=== PATIENT | female | born 1970 | race Caucasian/White ===

== ENCOUNTER → 2018-12-08 | Outpatient (CLI) | payer OTHER ==
--- NOTE | 2018-12-08 17:24 | REP ---
Chest x-ray: Two views: History: Shortness of breath. Nicotine dependence. Findings: The lungs are symmetrically aerated and clear. The pleural angles are sharp. Heart is not enlarged. Pulmonary vasculature is not increased. No significant bony abnormality is seen. Impression: Negative chest x-ray. Electronically Signed by Leopoldo Guzmán MD 12/08/2018 05:25 P
== END ==
LOC: M RAD 11:56
PROVIDERS: ATTEND Physician Assistant
DX: R06.02 Shortness of breath (principal)

== ENCOUNTER → 2018-12-17 | Outpatient (CLI) | payer OTHER ==
[2018-12-17 17:47] LABS: C REACTIVE PROTEIN QUANTITATIV 0.68 MG/DL (0.00-0.30)
[2018-12-20 00:06] LABS: CYCLIC CITRULLINATED PEPTIDE 17 units (0-19); SSA SJOGRENS A <0.2 AI (0.0-0.9); SSB SJOGRENS B <0.2 AI (0.0-0.9)
== END ==
LOC: M LAB 16:14
PROVIDERS: ATTEND Physician Assistant
DX: M13.0 Polyarthritis, unspecified (principal); M32.9 Systemic lupus erythematosus, unspecified

== ENCOUNTER → 2018-12-24 | Outpatient (CLI) | payer OTHER ==
[~2018-12-24] MED LIST: E-Z-GAS II EFFERVESCENT PACKET (SODIUM BICARB./CITRIC ACID/SIMETHICONE) As Ordered ONE; E-Z-HD 98% w/w 340GM SUSP BTL As Ordered ONE; E-Z-PAQUE 96% w/w SUSP 176GM BTL As Ordered ONE
--- NOTE | 2018-12-24 15:41 | REP ---
Examination Requested: Esophagram Barium Swallow Reason For Exam/Comment: Dysphagia Esophagram: The procedure was performed JOAQUIN Lucero, under the direct supervision of Dr. Lovell. The images were reviewed with Dr. Lovell. A single PA chest x-ray is submitted as a bonding supervisor film. The superior mediastinal structures are midline. The heart size is within normal limits. The lungs are clear. Liquid barium and gas producing granules were given in the erect position as well as liquid barium in the prone oblique position, in order to perform a double contrast esophagram examination. Oral and pharyngeal stages of the examination were unremarkable. Esophageal transport is efficient and there is no esophagitis, stricture, or mucosal ring noted. However, there is any anterior esophageal filling defect that appears to be a tiny mucosal web. There is no hiatal hernia noted. Gastroesophageal reflux was not visualized throughout the course of this exam. Impression: 1. There is tiny anterior esophageal mucosal web. 0.3 minutes of fluoroscopy time was utilized for this procedure. Some fluoroscopic images are performed with last image hold technology. These images require no additional radiation. Reviewed by JOAQUIN Pimentel 12/24/2018 03:18 P Electronically Signed by Nima Lovell MD 12/24/2018 03:32 P
== END ==
LOC: M RAD 10:25
PROVIDERS: ATTEND Otolaryngology
DX: R13.10 Dysphagia, unspecified (principal); Q39.4 Esophageal web

== ENCOUNTER → 2019-02-18 | Outpatient (CLI) | payer OTHER ==
[~2019-02-18] MED LIST changes: -E-Z-GAS II EFFERVESCENT PACKET (SODIUM BICARB./CITRIC ACID/SIMETHICONE) As Ordered ONE; -E-Z-HD 98% w/w 340GM SUSP BTL As Ordered ONE; -E-Z-PAQUE 96% w/w SUSP 176GM BTL As Ordered ONE; +ISOVUE-370 76% 100ML VIAL (Q9967) As Ordered ONE
--- NOTE | 2019-02-18 11:38 | REP ---
CT neck soft tissues: 02/18/2019. Indication: Dysphasia. New comparison: None. Technique: Axial images of the neck soft tissues were obtained following the IV administration of 75 ml Isovue 370. Findings: There is no abnormal solid soft tissue mass, abnormal fluid collection or cervical lymphadenopathy. The submandibular, parotid and thyroid glands are unremarkable. No significant ocular, intraorbital or intracranial abnormalities are present. The paranasal sinuses and mastoid air cells are essentially clear. No focal pharyngeal mucosal space lesions are detected. Small tonsolith within the right palatine tonsil is present. No significant vascular abnormalities are present. The visualized lungs are clear. Impression: No abnormal solid soft tissue mass, abnormal fluid collection or cervical lymphadenopathy. Electronically Signed by Charly Estevez DO 02/18/2019 11:29 A
== END ==
LOC: M RAD 10:48
PROVIDERS: ATTEND Otolaryngology
DX: R13.10 Dysphagia, unspecified (principal)
CPT/HCPCS: 70491; Q9967

== ENCOUNTER → 2019-03-03 | Outpatient (REF) | payer OTHER | LOC: M LAB REF 18:46 | PROVIDERS: ATTEND Dermatology | DX: L57.0 Actinic keratosis (principal) ==

== ENCOUNTER → 2019-05-07 | Outpatient (REF) | payer OTHER ==
[2019-05-07 17:09] LABS: BASO # 0.1 10^3/uL (0.0-0.2); BASO % 0.8 % (0.0-1.0); EOS # 0.1 10^3/uL (0.0-0.5); EOS % 1.1 % (0.0-3.0); HEMATOCRIT 39.6 % (36.0-47.0); HEMOGLOBIN 13.5 g/dl (12.0-15.5); LYMPH # 1.7 10^3/uL (1.5-5.0); LYMPH % 24.5 % (24.0-44.0); MEAN CORPUSCULAR HEMOGLOBIN 30.4 pg (27.0-33.0); MEAN CORPUSCULAR HGB CONC 34.1 g/dl (32.0-36.5); MEAN CORPUSCULAR VOLUME 89.2 fl (80.0-96.0); MONO # 0.4 10^3/uL (0.0-0.8); MONO % 6.1 % (0.0-5.0); NEUTROPHILS # 4.8 10^3/uL (1.5-8.5); NEUTROPHILS % 67.2 % (36.0-66.0); PLATELET COUNT, AUTOMATED 254 10^3/uL (150-450); RED BLOOD COUNT 4.44 10^6/uL (4.00-5.40); WHITE BLOOD COUNT 7.1 10^3/uL (4.0-10.0)
[2019-05-07 17:40] LABS: ALBUMIN 4.3 GM/DL (3.2-5.2); ALT/SGPT 27 U/L (12-78); BILIRUBIN,TOTAL 0.6 MG/DL (0.2-1.0); BLOOD UREA NITROGEN 21 MG/DL (7-18); CALCIUM LEVEL 9.9 MG/DL (8.5-10.1); CARBON DIOXIDE LEVEL 28 MEQ/L (21-32); CHLORIDE LEVEL 104 MEQ/L (98-107); CREATININE FOR GFR 0.85 MG/DL (0.55-1.30); GLOMERULAR FILTRATION RATE > 60.0 (>58); GLUCOSE, FASTING 82 MG/DL (70-100); POTASSIUM SERUM 4.4 MEQ/L (3.5-5.1); SODIUM LEVEL 138 MEQ/L (136-145); TOTAL PROTEIN 8.2 GM/DL (6.4-8.2)
[2019-05-07 17:58] LABS: ERYTHROCYTE SEDIMENTATION RATE 46 mm/hr (0-20)
[2019-05-08 11:12] LABS: HEPATITIS B SURFACE ANTIGEN NEGATIVE (NEGATIVE)
[2019-05-08 11:41] LABS: HEPATITIS C VIRUS ABY INDEX 0.1 INDEX (<0.8)
== END ==
LOC: M SFHCRHEU 15:08
PROVIDERS: ATTEND Internal Medicine
DX: L40.50 Arthropathic psoriasis, unspecified (principal)

== ENCOUNTER → 2022-10-15 | Outpatient (CLI) | payer OTHER | LOC: M RAD 07:29 | PROVIDERS: ATTEND Physician Assistant | DX: M65.251 Calcific tendinitis, right thigh (principal); M19.012 Primary osteoarthritis, left shoulder; M25.551 Pain in right hip; M25.512 Pain in left shoulder ==

== ENCOUNTER → 2023-05-16 | Outpatient (CLI) | payer MEDICAID ==
[~2023-05-16] MED LIST changes: +B-12100010 PO; +BACL10TA2 PO; +CALC-239 PO; +CHEL50TA2 PO; +FOLI0.4T5 PO; -ISOVUE-370 76% 100ML VIAL (Q9967) As Ordered ONE; +LEVO200T4 PO; +MAGN500T12 PO; +OMEGCAP9 PO; +VITA-158 PO; +VITA-183 PO; +VITA250T30 PO; +VITMTA PO
== END ==
LOC: M OUTALCOH 09:23
PROVIDERS: ATTEND Psychiatry & Neurology Psychiatry
DX: F10.10 Alcohol abuse, uncomplicated (principal)

== ENCOUNTER 2023-05-23 12:55 | Outpatient (RCR) | payer MEDICAID ==
[2023-05-29] MEDS ORDERED: TRIA0.027 EXT (08:18)
[2023-05-29] MEDS ORDERED: THERTAB52 PO (08:18)
== END 2023-05-30 ==
LOC: M OUTALCOH 12:55
PROVIDERS: ATTEND Psychiatry & Neurology Psychiatry
DX: F12.10 Cannabis abuse, uncomplicated (principal); F10.10 Alcohol abuse, uncomplicated

== ENCOUNTER 2023-06-12 06:49 | Day surgery (SDC) | payer OTHER ==
[~2023-06-12] VITALS: Ht 166.4 cm; Wt 105.4 kg
[~2023-06-12 06:49] MED LIST changes: +THERTAB52 PO; +TRIA0.027 EXT
[2023-06-12] MEDS: NS 1,000 ML IV ONE (07:16)
[2023-06-12 07:52] VITALS: TEMP 97.5
[2023-06-12 08:05] VITALS: BP 114/58; O2SAT 97
[2023-06-12] MEDS ORDERED: fentaNYL 100 MCG/2 ML INJECTION As Ordered ONE (09:57)
[2023-06-12] MEDS ORDERED: propofoL 500 MG/50 ML VIAL As Ordered ONE (09:57)
[2023-06-12] MEDS ORDERED: LIDOCAINE 2% 100MG/5ML SDV (FOR ANES.) As Ordered ONE (09:57)
== END 2023-06-12 08:08 | disposition home or self-care (01) ==
LOC: M OPP 06:49
PROVIDERS: ATTEND Surgery
DX: Z12.11 Encounter for screening for malignant neoplasm of colon (principal); Z80.0 Family history of malignant neoplasm of digestive organs; K63.5 Polyp of colon; K64.8 Other hemorrhoids; Z87.891 Personal history of nicotine dependence; Z79.890 Hormone replacement therapy; Z88.4 Allergy status to anesthetic agent
CPT/HCPCS: 45380; 88305; J3010

== ENCOUNTER → 2023-07-09 | Outpatient (REF) | payer OTHER | LOC: M SFHCWAGY 08:32 | PROVIDERS: ATTEND Specialist | DX: Z12.4 Encounter for screening for malignant neoplasm of cervix (principal) ==